=== PATIENT | female | born 1985 | race Caucasian/White ===

== ENCOUNTER → 2016-12-16 | Outpatient (CLI) | payer BC | LOC: LAB 17:18 | DX: R30.0 Dysuria (principal) ==

== ENCOUNTER 2024-03-05 14:58 | Emergency (ER) | payer BC ==
[~2024-03-05] VITALS: Ht 162.6 cm; Wt 76.8 kg
[2024-03-05] MEDS ORDERED: VALACYCLOVIR500 MG (15:11)
[2024-03-05] MEDS ORDERED: SYMBICORT1 AE3 IH (15:11)
[2024-03-05 15:57] LABS: HEMATOCRIT 39.7 % (37.0-47.0); HEMOGLOBIN 13.3 g/dL (12.5-16.0); MEAN CELL VOLUME 95 fl (78-100); MEAN CORPUSCULAR HEMOGLOBIN 32 pg (27-31); MEAN CORPUSCULAR HGB CONC 34 g/dL (33-37); MEAN PLATELET VOLUME 9.8 fl (7.4-10.4); PLATELET COUNT 138 K/mm3 (130-400); RED BLOOD COUNT 4.18 M/mm3 (4.10-5.30); RED CELL DISTRIBUTION WIDTH 13.9 % (11.5-14.5); WHITE BLOOD COUNT 4.9 K/mm3 (4.8-10.8)
[2024-03-05] MEDS ORDERED: NS 1,000 ML IV SCH (16:00)
[2024-03-05] MEDS ORDERED: Ondansetron 4 MG/2 ML VIAL IV ONE (16:00)
[2024-03-05] MEDS ORDERED: PREDNISONE20 MG PO (16:14)
[2024-03-05] MEDS ORDERED: ZOFRAN ODT4 MG PO (16:15)
[2024-03-05 16:17] LABS: ALBUMIN 3.9 g/dL (3.5-5.0)
[2024-03-05 16:18] LABS: LYMPHOCYTE 8 % (20-51); MONOCYTE 2 % (3-10); NEUTROPHILS 90 % (42-75)
[2024-03-05 16:19] LABS: CALCIUM 8.9 mg/dL (8.3-10.5)
[2024-03-05 16:20] LABS: TOTAL PROTEIN 6.4 g/dL (6.4-8.3)
[2024-03-05 16:22] LABS: TOTAL BILIRUBIN 0.4 mg/dL (0.2-1.2)
[2024-03-05 17:10] VITALS: BP 145/82
== END 2024-03-05 17:10 | disposition home or self-care (01) ==
LOC: ED 14:58
PROVIDERS: Physician Assistant
DX: J10.1 Influenza due to other identified influenza virus with other respiratory manifestations (principal); J45.21 Mild intermittent asthma with (acute) exacerbation
CPT/HCPCS: J2405; J7030